=== PATIENT | female | born 1970 | race Caucasian/White ===

== ENCOUNTER 2024-02-02 08:04 | Emergency (ER) | payer OTHER, SELFPAY ==
[~2024-02-02] VITALS: Ht 167.6 cm; Wt 84.1 kg
[2024-02-02] MEDS: METOCLOPRAMIDE INJ 10MG/2ML VIAL IV ONE (08:25)
[2024-02-02] MEDS: NS 1,000 ML IV ONE ×2 (08:25→09:55)
[2024-02-02 08:52] VITALS: TEMP 97.8
[2024-02-02 08:55] LABS: BASO % 0.3 % (0.0-1.0); EOS # 0.2 10^3/uL (0.0-0.5); HEMATOCRIT 48.4 % (36.0-47.0); HEMOGLOBIN 16.1 g/dl (12.0-15.5); LYMPH # 0.5 10^3/uL (1.5-5.0); LYMPH % 3.6 % (24.0-44.0); MEAN CORPUSCULAR HEMOGLOBIN 27.9 pg (27.0-33.0); MEAN CORPUSCULAR HGB CONC 33.3 g/dl (32.0-36.5); MEAN CORPUSCULAR VOLUME 83.9 fl (80.0-96.0); MONO # 0.5 10^3/uL (0.0-0.8); MONO % 3.1 % (2.0-8.0); NEUTROPHILS # 13.4 10^3/uL (1.5-8.5); NEUTROPHILS % 91.5 % (36.0-66.0); PLATELET COUNT, AUTOMATED 236 10^3/uL (150-450); RED BLOOD COUNT 5.77 10^6/uL (4.00-5.40); WHITE BLOOD COUNT 14.6 10^3/uL (4.0-10.0)
[2024-02-02 09:29] LABS: LIPASE 49 U/L (12-53)
[2024-02-02 09:43] LABS: ALBUMIN 3.7 G/DL (3.2-5.2); ALKALINE PHOSPHATASE 212 U/L (46-116); ALT/SGPT 53 U/L (7.0-40); AST/SGOT 39 U/L (<34); BILIRUBIN,DIRECT 0.4 MG/DL (<0.4); BLOOD UREA NITROGEN 22 MG/DL (9-23); CALCIUM LEVEL 9.5 MG/DL (8.5-10.1); CARBON DIOXIDE LEVEL 24 MMOL/L (20-31); CHLORIDE LEVEL 100 MMOL/L (98-107); CREATININE FOR GFR 0.46 MG/DL (0.55-1.30); GLOMERULAR FILTRATION RATE > 60.0 (>51); GLUCOSE, FASTING 428 MG/DL (60-100); POTASSIUM SERUM 4.2 MMOL/L (3.5-5.1); SODIUM LEVEL 137 MMOL/L (136-145); TOTAL PROTEIN 7.7 G/DL (5.7-8.2)
[2024-02-02] MEDS ORDERED: ISOVUE-370 76% 100ML VIAL As Ordered ONE (10:00)
[2024-02-02] MEDS: HumuLIN R (REGULAR) INSULIN (NovoLIN R) **100U/ML** PER UNIT IV ONE (10:35)
[2024-02-02 10:38] LABS: HEMOGLOBIN A1c 13.5 % (4.0-6.0)
[2024-02-02 12:00] VITALS: BP 152/79; O2SAT 93
[2024-02-02] MEDS ORDERED: ONDA4TAB6 PO (12:54)
== END 2024-02-02 13:09 | disposition home or self-care (01) ==
LOC: EDBD 08:04 → M ED 08:04
DX: E11.65 Type 2 diabetes mellitus with hyperglycemia (principal); R11.2 Nausea with vomiting, unspecified; R19.7 Diarrhea, unspecified; R94.31 Abnormal electrocardiogram [ECG] [EKG]; Z88.2 Allergy status to sulfonamides; Z79.899 Other long term (current) drug therapy
CPT/HCPCS: 74177; 80048; 80076; 83036; 83690; 85025; 93005; 96361; 96374; 96375; 99284; J1815; J2765; Q9967